=== PATIENT | female | born 1965 | race African-American/Black ===

== ENCOUNTER 2016-06-24 16:02 | Emergency (ER) | payer OTHER ==
[~2016-06-24] VITALS: Ht 154.9 cm; Wt 66.8 kg
[~2016-06-24 16:02] MED LIST: NOCURR
[2016-06-24] MEDS ORDERED: PARO10TA89 PO (16:07)
[2016-06-24] MEDS ORDERED: PERTUSS(ACELL),DIPH,TET VAC/PF 0.5 ML VIAL IM ONE (17:00)
[2016-06-24 17:11] VITALS: BP 147/92
== END 2016-06-24 17:37 | disposition home or self-care (01) ==
LOC: EMS 16:04
DX: S61.213A Laceration without foreign body of left middle finger without damage to nail, initial encounter (principal); W25.XXXA Contact with sharp glass, initial encounter; Y93.89 Activity, other specified; Y92.89 Other specified places as the place of occurrence of the external cause; Y99.8 Other external cause status
CPT/HCPCS: 12001; 90471; 90715; 99283